=== PATIENT | female | born 1995 | race Caucasian/White ===

== ENCOUNTER 2019-12-10 09:29 | Emergency (ER) | payer OTHER ==
[2019-12-10 11:09] LABS: HIV (1/2) Antibody/Antigen Non-Reactive (NonReactive); HIV 1/2 INDEX 0.19 S/CO (<1.00); Hep C IgG Ab Non-Reactive (NonReactive); Hep C Index 0.14 S/CO (0-0.79)
[2019-12-10 11:15] LABS: HBSAB Concentration 64.33 mIU/mL; Hep B Surf AB Reactive (NonReactive)
== END 2019-12-10 10:32 | disposition home or self-care (01) ==
LOC: ERS 09:29
DX: Z77.21 Contact with and (suspected) exposure to potentially hazardous body fluids (principal); F41.9 Anxiety disorder, unspecified; Z79.899 Other long term (current) drug therapy
CPT/HCPCS: 36415; 86706; 86803; 87389; 99283

== ENCOUNTER 2020-06-23 09:38 | Emergency (ER) | payer OTHER ==
[2020-06-23 11:00] LABS: HIV (1/2) Antibody/Antigen Non-Reactive (NonReactive); HIV 1/2 INDEX 0.11 S/CO (<1.00); Hep C IgG Ab Non-Reactive (NonReactive)
[2020-06-23 11:02] LABS: Hep B Surf AB Reactive (NonReactive)
== END 2020-06-23 10:20 | disposition home or self-care (01) ==
LOC: EEVIPCON 09:38 → ER/OP 09:38 → ERS 09:38 → ER/OP 10:20 → ERS 10:20
DX: S61.231A Puncture wound without foreign body of left index finger without damage to nail, initial encounter (principal); Z77.21 Contact with and (suspected) exposure to potentially hazardous body fluids; F41.9 Anxiety disorder, unspecified; X58.XXXA Exposure to other specified factors, initial encounter
CPT/HCPCS: 36415; 86706; 86803; 87389; 99283